=== PATIENT | female | born 1970 | race Caucasian/White ===

== ENCOUNTER 2017-03-22 15:51 | Emergency (ER) | payer OTHER ==
[~2017-03-22] VITALS: Ht 154.9 cm; Wt 108.6 kg
[2017-03-22] MEDS ORDERED: VALIUM2 MG PO (18:05)
[2017-03-22] MEDS ORDERED: PREDNISONE20 MG PO (18:05)
[2017-03-22] MEDS ORDERED: INDOCIN50 MG PO (18:05)
[2017-03-22] MEDS ORDERED: BENADRYL50 MG PO (18:08)
[2017-03-22 18:23] VITALS: BP 149/105
== END 2017-03-22 18:24 | disposition home or self-care (01) ==
LOC: RME 15:51 → EME 15:51 → RME 18:24
DX: H10.9 Unspecified conjunctivitis (principal); M54.5 Low back pain; G89.29 Other chronic pain
CPT/HCPCS: 99281; 99282; J7512

== ENCOUNTER 2017-05-22 18:41 | Emergency (ER) | payer OTHER ==
[~2017-05-22] VITALS: Ht 154.9 cm; Wt 106.0 kg
[~2017-05-22 18:41] MED LIST: BENADRYL50 MG PO; INDOCIN50 MG PO; PREDNISONE20 MG PO; VALIUM2 MG PO
[2017-05-22] MEDS ORDERED: INDOCIN50 MG PO (21:43)
[2017-05-22] MEDS ORDERED: NORCO 7.5/321 TABLET PO (21:43)
[2017-05-22] MEDS ORDERED: VALIUM5 MG PO (21:43)
[2017-05-22] MEDS ORDERED: LIDODERM 5% P1 PATCH TD (21:43)
[2017-05-22 22:57] VITALS: BP 130/86
== END 2017-05-22 22:59 | disposition home or self-care (01) ==
LOC: EME 18:41
DX: M54.41 Lumbago with sciatica, right side (principal); M51.37 Other intervertebral disc degeneration, lumbosacral region; Z91.81 History of falling
CPT/HCPCS: 72100; 99281; 99284; J3010

== ENCOUNTER 2017-11-12 08:43 | Emergency (ER) | payer OTHER ==
[~2017-11-12] VITALS: Ht 154.9 cm; Wt 116.0 kg
[~2017-11-12 08:43] MED LIST changes: +LIDODERM 5% P1 PATCH TD; +NORCO 7.5/321 TABLET PO; +VALIUM5 MG PO
[2017-11-12 11:14] VITALS: BP 115/80
== END 2017-11-12 11:15 | disposition home or self-care (01) ==
LOC: EME 08:43
PROVIDERS: Emergency Medicine
DX: B34.9 Viral infection, unspecified (principal); R06.00 Dyspnea, unspecified; R05 Cough; M79.1 Myalgia
CPT/HCPCS: 71046; 87502; 99281; 99283